=== PATIENT | female | born 1985 | race Caucasian/White ===

== ENCOUNTER 2025-02-10 08:54 | Emergency (ER) | payer OTHER, SELFPAY ==
[2025-02-10 08:55] VITALS: BP 122/87
[2025-02-10 09:33] VITALS: BP 112/75
[2025-02-10 09:41] LABS: Hematocrit 40.4 % (37.0-47.0); Hemoglobin 13.6 g/dL (12.0-16.0); Mean Corp Hgb Conc. 33.7 g/dL (33.0-37.0); Mean Corpuscular Volume 88.0 fL (81.0-99.0); Nucleated Red Blood Cells % 0 %; Platelet Count 189 10^3/uL (130-400); Red Cell Dist. Width 13.1 % (11.5-14.5)
--- NOTE | 2025-02-10 09:45 | ED.GENMED ---
History of Present Illness
<Afshan Alejandro MD, Resident - Last Filed: 02/10/25 12:50>
General
Chief Complaint: Chest Pain
Source: patient
Time Seen by Provider: 02/10/25 09:20
History of Present Illness
History of Present Illness:
Patient is a 39-year-old healthy female with no significant past medical history who is here for evaluation of chest pain.
3 days ago, on Sunday she had some mild signs and symptoms including sore throat, general malaise and fatigue. On Sunday, she felt a little better but she had this chest pain that was burning in nature and was changing in intensity with change in
position. It got better by sitting up and worsened by lying down or squatting. She also reports shortness of breath with exercise but she can do normal daily activities of living without any issues. Denies any fever, nausea, vomiting, diarrhea,
body aches, or issues with appetite.
Past History
<Afshan Alejandro MD, Resident - Last Filed: 02/10/25 12:50>
Past History
ED Past Medical History: None
ED Past Surgical History: Other (Jaw surgery)
Social History
Tobacco: Non-smoker
Alcohol: None
Personal:
Living: with family
Employment: Employed
Review of Systems
<Afshan Alejandro MD, Resident - Last Filed: 02/10/25 12:50>
Review of Systems
All Other Systems: ROS reviewed and negative except as documented in HPI and ROS
Phy Exam
<Afshan Alejandro MD, Resident - Last Filed: 02/10/25 12:50>
General Physical Exam
General Presentation: well appearing and no apparent distress
General age: appears stated age
General Skin: warm and dry
General Habitus: normal
General Mental: alert
Cardiovascular Exam
Cardiovascular Exam: regular rate/rhythm, no edema, no gallop, no murmur and normal peripheral pulses
Pulmonary Exam
Pulmonary Exam: lungs clear, no respiratory distress, no rales, no rhonchi and no wheezing
Neurological Exam
Neurological Exam: alert, oriented x3 and no motor deficits
Musculoskeletal Exam
Musculoskeletal Exam: full ROM and no edema
Skin Exam
Skin Exam: normal color, warm/dry and no rash
Psychiatric Exam
Psychiatric Exam: normal mood/affect
Scores
<Afshan Alejandro MD, Resident - Last Filed: 02/10/25 12:50>
Heart Score for Chest Pain Patients
STEMI patient?: No
History: Slightly or Non-Suspicious
ECG: Normal
Age: </= 45 years
Risk Factors: No Risk Factors
Troponin: </= Normal Limit
Heart Score for Chest Pain Patients: 0
Heart Score Risk: 2.5% MACE over next 6 weeks
Course
<Afshan Alejandro MD, Resident - Last Filed: 02/10/25 12:50>
Orders/Labs/Results
Orders:
Orders
02/10/25 08:58
EKG [Electrocardiogram (*1)] Urgent
Reason for Study: Chest Pain
EKG- Treatment ONCE
02/10/25 09:32
C-Reactive Protein Urgent
Comment: ADD ON
Complete Blood Count/With Diff Urgent
Comprehensive Metabolic Panel Urgent
D-Dimer Urgent
Erythrocyte Sed Rate Urgent
Comment: ADD ON
HCG, Serum Qualitative Screen Urgent
Comment: ADD ON
Troponin I Urgent
02/10/25 10:00
Add On- LAB Urgent
Tests Added?: ESR,CRP
02/10/25 10:01
Echo 2D MMode Color/Doppler Urgent
Reason for Study: chest pain
CR Chest - 2 Views Urgent
Comment:
Reason For Exam: chest pain
02/10/25 10:02
Add On- LAB Urgent
Tests Added?: hcg qualitative
02/10/25 12:49
Ketorolac [Toradol] 30 mg IV NOW ONE
Abnormal Lab Results
02/10/25
09:32
MPV 10.6 H fL
(7.4-10.4)
BUN 20 H mg/dl
(7-17)
02/10/25 09:32
02/10/25 09:32
Vital Signs
Initial and Last Documented VS:
Initial Vital Signs
Temp Pulse Resp BP Pulse Ox
98.0 F 91 16 122/87 98
02/10/25 08:55 02/10/25 08:55 02/10/25 08:55 02/10/25 08:55 02/10/25 08:55
Last Documented Vital Signs
Temp Pulse Resp BP Pulse Ox
98.0 F 81 20 112/75 99
02/10/25 08:55 02/10/25 10:01 02/10/25 10:01 02/10/25 09:33 02/10/25 09:55
<Magdy Gale, DO - Last Filed: 02/10/25 10:22>
Orders/Labs/Results
Orders:
Orders
02/10/25 08:58
EKG [Electrocardiogram (*1)] Urgent
Reason for Study: Chest Pain
EKG- Treatment ONCE
02/10/25 09:32
C-Reactive Protein Urgent
Comment: ADD ON
Complete Blood Count/With Diff Urgent
Comprehensive Metabolic Panel Urgent
D-Dimer Urgent
Erythrocyte Sed Rate Urgent
Comment: ADD ON
HCG, Serum Qualitative Screen Urgent
Comment: ADD ON
Troponin I Urgent
02/10/25 10:00
Add On- LAB Urgent
Tests Added?: ESR,CRP
02/10/25 10:01
Echo 2D MMode Color/Doppler Urgent
Reason for Study: chest pain
CR Chest - 2 Views Urgent
Comment:
Reason For Exam: chest pain
02/10/25 10:02
Add On- LAB Urgent
Tests Added?: hcg qualitative
02/10/25 12:49
Ketorolac [Toradol] 30 mg IV NOW ONE
Abnormal Lab Results
02/10/25
09:32
MPV 10.6 H fL
(7.4-10.4)
BUN 20 H mg/dl
(7-17)
02/10/25 09:32
02/10/25 09:32
Vital Signs
Initial and Last Documented VS:
Initial Vital Signs
Temp Pulse Resp BP Pulse Ox
98.0 F 91 16 122/87 98
02/10/25 08:55 02/10/25 08:55 02/10/25 08:55 02/10/25 08:55 02/10/25 08:55
Last Documented Vital Signs
Temp Pulse Resp BP Pulse Ox
98.0 F 81 20 112/75 99
02/10/25 08:55 02/10/25 10:01 02/10/25 10:01 02/10/25 09:33 02/10/25 09:55
<Afshan Alejandro MD, Resident - Last Filed: 02/10/25 12:50>
MDM/Problems Addressed
Differential Diagnosis Includes:
ACS
PE
Pericarditis
Aortic dissection
Musculoskeletal pain/costochondritis
MDM/Problems Addressed:
Given the atypical chest pain, normal EKG less likely ACS, troponin levels normal, reassured the patient
Patient is physically active, no risk factors present, vitally stable, less likely PE
Chest pain is less suggestive of aortic dissection
D-dimers which came back negative and also did an echocardiogram to make sure there is no pericarditis-echocardiogram normal with normal left and right ventricular function, no pericardial effusion and no valvular dysfunction
Most likely musculoskeletal pain secondary to the viral infection
Would reassure the patient and discharged home with [id number] pain medications
<Afshan Alejandro MD, Resident - Last Filed: 02/10/25 12:50>
*Pulse Oximetry
SaO2: 99
Oxygen Mode of Delivery: Room air
Patient hypoxic: no
*Critical Care Note
Total Time (30-74mins, 75-104mins- exclusive of procedures): Not Applicable
ED Attending Note
<Afshan Alejandro MD, Resident - Last Filed: 02/10/25 12:50>
-
Portions of this chart may have been created with voice recognition software.� Occasional wrong word or��sound alike� substitutions may have occurred due to the inherent limitations of voice recognition software.
<Magdy Gale, DO - Last Filed: 02/10/25 10:22>
ED Attending Note
Patient seen and examined by attending physician: Yes
I performed a history and physical exam of patient and discussed management with resident, I reviewed resident's note and agree with documented findings and plan of care.: Yes
ED Attending Note:
Seen with resident examined independently 39-year-old female limited past medical history
Sharp pain chest pain shortness of breath recent URI works with changing position
Looks well took some Motrin this morning differential includes pericarditis pleurisy PE less likely pneumonia pneumothorax or ACS
Discharge Plan
Departure
Referrals:
Brannon Sahu PA-C [Family Provider, Family Practice]
Interventions
Interventions:
*Risk Screen - Suicide Last Done: 02/10/25 08:55
*General Assessment Last Done: 02/10/25 08:55
*Neglect/Abuse Screening Last Done: 02/10/25 08:55
*ED- Fall Risk Assessment Last Done: 02/10/25 08:55
*ED COVID-19 Vaccine History Last Done: 02/10/25 08:55
*ED Influenza Vaccine History Last Done: 02/10/25 08:55
ED- Cardiac Assessment Last Done: 02/10/25 09:36
Discharge Date and Time
Print Language: INDONESIAN
[2025-02-10 09:53] LABS: D-Dimer 0.34 ug/mlFEU (0.00-0.50)
[2025-02-10 09:57] LABS: ALT (SGPT) 16 U/L (0-35); AST (SGOT) 17 U/L (14-36); Albumin 4.2 g/dl (3.5-5.0); Alkaline Phosphatase 53 U/L (38-126); Blood Urea Nitrogen 20 mg/dl (7-17); Calcium 9.0 mg/dl (8.4-10.2); Carbon Dioxide 27 mmol/L (22-30); Chloride 105 mmol/L (98-107); Glucose 85 mg/dl (70-99); Potassium 4.1 mmol/L (3.5-5.1); Sodium 136 mmol/L (135-145); Total Protein 6.9 g/dl (6.3-8.2); eGFR > 60.00
[2025-02-10 10:00] VITALS: BP 120/78
[2025-02-10 10:24] LABS: Troponin I < 0.012 ng/ml
[2025-02-10 10:29] LABS: HCG, Serum Qualitative Screen Negative
[2025-02-10 12:00] VITALS: BP 103/54
[2025-02-10 12:54] VITALS: BP 102/64
[2025-02-10] MEDS: TORADOL 30 MG IV (12:57)
[2025-02-10 13:01] LABS: C-Reactive Protein 6.90 mg/L (0.0-10.00)
== END 2025-02-10 13:15 | disposition home or self-care (01) ==
LOC: EMR 08:54
PROVIDERS: EMERGENCY PHYSICIAN Emergency Medicine; FAMILY PHYSICIAN Physician Assistant Medical
DX: B34.9 Viral infection, unspecified (principal); R07.89 Other chest pain
CPT/HCPCS: 99284; 96374; 71046; 80053; 84484; 84703; 85025; 85379; 85652; 86140; 93005; 93306